=== PATIENT | male | born 1995 ===

== ENCOUNTER → 2023-07-24 16:11 | Outpatient (CLI) | payer OTHER, SELFPAY ==
--- NOTE | ~2023-07-24 | US_ITS ---
EXAMINATION: US right upper quadrant DATE: 07/24/2023 16:33 INDICATION: Right upper quadrant abdominal pain. TECHNIQUE: Multiple grayscale and Doppler ultrasound images of the abdomen were obtained. COMPARISON: None FINDINGS: The visualized portions of the head and body of the pancreas are normal. The liver is anamaria l without focal lesion. No liver surface nodularity. There is normal flow in main portal vein. The ga llbladder is normal in size. No gallstones or gallbladder wall thickening. There is no sonographic Mu rphy sign. The common duct is normal and measures 4 mm. IMPRESSION: 1. Normal right upper quadrant ultrasound. Reviewed, dictated and finalized at location A.
== END ==
PROVIDERS: PCP Nurse Practitioner Family; Visit Provider Nurse Practitioner Family
DX: R10.11 Right upper quadrant pain (principal)
CPT/HCPCS: 76705